=== PATIENT | female | born 1955 | race Caucasian/White ===

== ENCOUNTER → 2017-06-15 | Outpatient (CLI) | payer OTHER ==
[~2017-06-15] MED LIST: LEVAQUIN 250MG250 MG PO; LEVOTHYROXINE PO; SYNTHROID 0.0.025 MG PO; VITAMIN D32000 IU PO; ZESTRIL2.5 MG PO
== END ==
LOC: MC.RAD 13:59
DX: Z12.31 Encounter for screening mammogram for malignant neoplasm of breast (principal); Z98.890 Other specified postprocedural states

== ENCOUNTER → 2020-02-18 | Outpatient (CLI) | payer OTHER | LOC: COL.VAS 09:28 | DX: A78 Q fever (principal); I34.0 Nonrheumatic mitral (valve) insufficiency ==